=== PATIENT | male | born 1990 | race American Indian/Alaskan Native ===

== ENCOUNTER 2017-08-27 19:34 | Emergency (ER) | payer SELFPAY | END 2017-08-27 19:35 | disposition left against medical advice (07) | LOC: ED 19:34 | DX: T22.00XA Burn of unspecified degree of shoulder and upper limb, except wrist and hand, unspecified site, initial encounter (principal); Z53.21 Procedure and treatment not carried out due to patient leaving prior to being seen by health care provider ==

== ENCOUNTER 2017-12-23 18:56 | Emergency (ER) | payer SELFPAY ==
--- NOTE | 2017-12-23 20:43 | XRay Report ---
FINAL REPORT PROCEDURE: XR FOOT 3+V LT TECHNIQUE: LEFT foot radiographs, AP, lateral, and oblique views. CPT 60563 HISTORY: foot swelling COMPARISON: No prior studies are available for comparison. FINDINGS: Fracture (s) and/or Dislocation(s): None . Alignment: Normal . Joint space(s): Normal . Soft tissues: Normal . Bone mineralization: Normal . Foreign bodies: None . Calcaneal spurring: None . IMPRESSION: Negative examination.
--- NOTE | 2017-12-24 00:40 | Emergency Department Report ---
ED Lower Extremity HPI - General Chief Complaint: Extremity Injury, Lower Stated Complaint: LT FOOT SWOLLEN Time Seen by Provider: 12/23/17 23:11 Source: patient Mode of arrival: Ambulatory Limitations: No Limitations - History of Present Illness Initial Comments: Patient 27-year-old -[place] male presents for left dorsal foot pain after running today states he wants to his usual round and woke up with pain and swelling to his left foot denies fall twisting injury and no trauma x-ray appears normal fractional soft tissue injury there is mild swelling with erythema and tenderness into athlete's foot patient has history of tim SETHI Complaint: foot injury Onset/Timin Injury: Foot: Left Type of Injury: unknown Place: home Severity: moderate Severity scale (0 -10): 4 Improves With: rest Worsens With: weight bearing, movement, palpation Context: running Associated Symptoms: swelling, ambulatory. denies: numbness, tingling - Related Data Previous Rx's Medication Instructions Recorded Last Taken Type Cephalexin [Keflex] 500 mg PO TID 10 Days #30 capsule 12/24/17 Unknown Rx Naproxen [Naprosyn TAB] 500 mg PO BID #30 tablet 12/24/17 Unknown Rx Terbinafine HCl [Lamisil At] 1 applicatio TP BID #1 tube 12/24/17 Unknown Rx Allergies Allergy/AdvReac Type Severity Reaction Status Date / Time No Known Allergies Allergy Verified 12/23/17 19:22 ED Review of Systems ROS: Stated complaint: LT FOOT SWOLLEN Other details as noted in HPI Constitutional: denies: chills, fever Eyes: denies: eye pain, eye discharge, vision change ENT: denies: ear pain, throat pain Respiratory: denies: cough, shortness of breath, wheezing Cardiovascular: denies: chest pain, palpitations Endocrine: no symptoms reported Gastrointestinal: denies: abdominal pain, nausea, diarrhea Genitourinary: denies: urgency, dysuria Musculoskeletal: denies: back pain, joint swelling, arthralgia Skin: denies: rash, lesions Neurological: denies: headache, weakness, paresthesias Psychiatric: denies: anxiety, depression Hematological/Lymphatic: denies: easy bleeding, easy bruising ED Past Medical Hx - Past Medical History Previous Medical History?: No - Surgical History Past Surgical History?: No - Social History Smoking Status: Current Every Day Smoker Substance Use Type: None - Medications Home Medications: Home Medications Medication Instructions Recorded Confirmed Last Taken Type Cephalexin [Keflex] 500 mg PO TID 10 Days #30 capsule 12/24/17 Unknown Rx Naproxen [Naprosyn TAB] 500 mg PO BID #30 tablet 12/24/17 Unknown Rx Terbinafine HCl [Lamisil At] 1 applicatio TP BID #1 tube 12/24/17 Unknown Rx ED Physical Exam - General Limitations: No Limitations General appearance: alert, in no apparent distress - Head Head exam: Present: atraumatic, normocephalic - Eye Eye exam: Present: normal appearance - ENT ENT exam: Present: mucous membranes moist - Neck Neck exam: Present: normal inspection - Respiratory Respiratory exam: Present: normal lung sounds bilaterally. Absent: respiratory distress - Cardiovascular Cardiovascular Exam: Present: regular rate - GI/Abdominal GI/Abdominal exam: Present: soft, normal bowel sounds - Rectal Rectal exam: Present: deferred - Extremities Exam Extremities exam: Present: normal inspection, tenderness - Expanded Lower Extremity Exam Left Foot/Toe exam: Present: tenderness, swelling, erythema (tinea erythema ), nail avulsion. Absent: abrasion, laceration, ecchymosis, deformity, crepidus, dislocation, amputation, puncture wound, foreign body, calcaneal tenderness, tenderness at base of 5th metatarsal, subungual hematoma - Back Exam Back exam: Present: normal inspection - Neurological Exam Neurological exam: Present: alert, oriented X3 - Psychiatric Psychiatric exam: Present: normal affect - Skin Skin exam: Present: warm, dry, intact, normal color. Absent: rash ED Course Vital Signs 12/23/17 19:23 Temperature 98.8 F Pulse Rate 65 Respiratory 16 Rate Blood Pressure 135/85 O2 Sat by Pulse 96 Oximetry ED Lower Extremity MDM - Radiology Data Radiology results: report reviewed, image reviewed No fracture no soft tissue abnormality - Medical Decision Making This is athlete's foot with mild cellulitis prescribed Lamisil Keflex patient will follow-up with podiatry patient verbalizes agreement and understanding of discharge plan patient DC'd home in stable condition at this time patient is a steady gait Critical care attestation.: If time is entered above; I have spent that time in minutes in the direct care of this critically ill patient, excluding procedure time. ED Disposition Clinical Impression: Cellulitis of foot, Athlete's foot on left Disposition: DC-01 TO HOME OR SELFCARE Is pt being admited?: No Does the pt Need Aspirin: No Condition: Good Instructions: Terbinafine (On the skin), Tinea Pedis (ED), Cellulitis (ED) Prescriptions: Cephalexin [Keflex] 500 mg PO TID 10 Days #30 capsule Naproxen [Naprosyn TAB] 500 mg PO BID #30 tablet Terbinafine HCl [Lamisil At] 1 applicatio TP BID #1 tube Referrals: [facility] [Outside] - 3-5 Days Forms: Work/School Release Form(ED) Time of Disposition: 00:44
[2017-12-24 00:53] VITALS: BP 132/74
== END 2017-12-24 00:51 | disposition home or self-care (01) ==
LOC: ED 21:22
DX: B35.3 Tinea pedis (principal); L03.116 Cellulitis of left lower limb; F17.200 Nicotine dependence, unspecified, uncomplicated
CPT/HCPCS: 99283